=== PATIENT | male | born 1940 | race Asian ===

== ENCOUNTER 2019-08-23 10:49 | Emergency (ER) | payer OTHER, MEDICARE ==
[2019-08-23 10:56] VITALS: BMI 32.9
[2019-08-23] MEDS ORDERED: methylPREDNISolone NA SUCC 125 MG/2 ML VIAL IVPUSH ONE (11:16)
[2019-08-23] MEDS ORDERED: AMPICILLIN NA/SULBACTAM NA 1.5 GM in SODIUM CHLORIDE 100 ML IVPB ONE (11:17)
[2019-08-23] MEDS ORDERED: LACTATED RINGERS SOLUTION 1000 ML INFUS.BAG IV ONE (11:17)
[2019-08-23] MEDS ORDERED: methylPREDNISolone NA SUCC 125 MG/2 ML VIAL ONE (11:20)
[2019-08-23 11:45] LABS: EOS % 0.4 % (0-4.5); HEMATOCRIT 39.9 % (35.4-49); HEMOGLOBIN 13.5 GM/dL (11.7-16.9); LYMPH % 10.4 % (8-40); MCHC 33.7 g/dl (32.0-35.9); MEAN CELL VOLUME 115.9 fl (80-96); MEAN PLT VOLUME 8.8 fl (7.5-11.1); NEUT % 79.2 % (42.8-82.8); PLATELET COUNT 124 K/MM3 (134-434); RBC 3.45 M/mm3 (4.00-5.60); RDW 19.5 % (11.9-15.9); WHITE BLOOD COUNT 9.8 K/mm3 (4.0-10.0)
[2019-08-23] MEDS ORDERED: KETOROLAC TROMETHAMINE 15 MG/ML VIAL IVPUSH ONE (12:01)
--- NOTE | 2019-08-23 12:12 | PDOC ---
Attending Attestation - Resident Resident Name: Geronimo Mahan - ED Attending Attestation I have performed the following: I have examined & evaluated the patient, The case was reviewed & discussed with the resident, I agree w/resident's findings & plan - HPI HPI: 08/23/19 12:02 79-year-old male with history of A. fib on anticoagulation presenting with sore throat x4 days, associate with difficulty swallowing and odynophagia. No fevers , no chest pain no cough no shortness of breath. Has been able to tolerate liquids. He went to see ENT today, Dr. Huitron who dx'd with supraglottitis via rhinoscopy, referred to ED for steroids and abx, observation - Physicial Exam PE: 08/23/19 12:04 NCAT, PERRL, EOMI, clear conjunctiva, anicteric, moist mucus membranes, oropharynx clear. Airway patent, normal phonation. tolerating secretions. Uvula midline. no tonsillar hypertrophy. No sinus tenderness. MMM. irregularly irregular, CTAB. Abdomen soft NT. WWP, no edema. neck supple, no meningeal signs. - Medical Decision Making 08/23/19 12:04 Vital Signs Temp Pulse Resp BP Pulse Ox 78 17 115/77 99 08/23/19 10:54 08/23/19 10:54 08/23/19 10:54 08/23/19 10:54 labs and lytes. wnl normal wbc ct. strep neg maintaining airway. tolerating secretions given IV solumedrol, toradol, IVF, unasyn x1 dose, reassess ENT call back to Dr Huitron who called the patient in and initially discussed prior to transport to ED. will come to eval pt and agreeable to plan as discussed 08/23/19 14:15 On reassessment, patient feels much improved, airway remains patent, tolerating secretions and able to tolerate p.o. intake. He responded well to the Toradol, status post antibiotics and steroids. Will Rx course of Augmentin x1 week and prednisone taper for anti-inflammatory effects. Patient also advised to take NSAIDs as needed for pain control. Return precautions also provided including worsening fevers, pain, inability to tolerate oral intake, dehydration, worsening infection or airway compromise. Patient and family made aware of impression and plan and amenable. 10/24/19 15:04 Discharge - Discharge Information Problems reviewed: Yes Clinical Impression/Diagnosis: Supraglottitis, unspecified, without obstruction Condition: Improved Disposition: HOME - Admission No - Additional Discharge Information Prescriptions: Amox-Tr/K Cl [Augmentin - 875Mg Tablet] 1 tab PO BID #14 tablet predniSONE [Deltasone -] 10 mg PO DAILY 4 Days #6 tablet - Follow up/Referral Referrals: Bakari Huitron MD [Staff Physician] - - Patient Discharge Instructions Patient Printed Discharge Instructions: Sore Throat Additional Instructions: 1) Please follow-up with your primary care doctor in the next 1-2 days. Please call tomorrow for for any urgent issues. You are seen in the emergency department for your supraglottitis, your strep test was negative, follow-up on your throat cultures. 2) You were given a copy of the tests performed today. Please bring the results with you and review them with your primary care doctor. Your laboratory / results were normal, 3) If you have any worsening of symptoms or any other concerns please return to the ED immediately. Return if worsening symptoms including fevers, headache, vomiting, visual or hearing disturbances, abdominal pain, chest pain, shortness of breath, syncope, dehydration, inability to take things by mouth/vomiting, altered mental status, or worsening concerning symptoms. 4) Please continue taking your home medications as directed. your medications on discharge include Augmentin twice a day x1 week and steroid taper. . side effects may include upset stomach, abdominal pain, vomiting, or diarrhea. do not drink alcohol with your medications. Stay well hydrated and rest adequately. Make an appointment. If you cannot follow-up with your primary care doctor please return to the ED - Post Discharge Activity
--- NOTE | 2019-08-23 12:17 | PDOC ---
History of Present Illness - General Chief Complaint: Sore Throat Stated Complaint: SORE THROAT Time Seen by Provider: 08/23/19 11:02 History Source: Patient, Other (Dr. Huitron) Exam Limitations: No Limitations - History of Present Illness Initial Comments: HPI: 79 y/o male presenting to [facility] ER complaining of four days of sore throat. Pt was evaluated in Dr. Huitron's ENT clinic this morning and diagnosed with supraglottitis. Dr. Huitron requested pt receive IV Unasyn and Solumedrol. Would like the pt to be observed for several hours. Dr. Huitron will come evaluate the pt again the department. 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 Denies fevers, chills, difficulty swallowing, or change in voice. 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 Medical Hx: - Afib on AC Review of Systems: In addition to that documented in the HPI above, the additional ROS was obtained : Constitutional- Denies fevers or chills Head- Denies vision changes ENMT- Per HPI CV- Denies chest pain Resp- Denies SOB GI- Denies vomiting or diarrhea - Denies painful urination MSK- Denies recent trauma Skin- Denies new rashes Neuro- Denies new numbness or tingling or weakness Endocrine- Denies polyuria Heme- Denies bleeding or bruising Physical Examination: Constitutional- Nontoxic adult male in no acute distress but mild obvious discomfort. Found semi-fowlers on hospital bed. Answered all questions appropriately and completely. Head- Normocephalic. No obvious external signs of trauma. Throat- Posterior oropharynx mildly erythematous. No exudate. Teeth and gingiva in good general condition. Neck- Supple, trachea is midline. Cardiovascular / Chest- Irregularly irregular rate and rhythm. No murmur, rubs, clicks, or gallops. Peripheral pulses- radial pulses full. Respiratory- Breathing unlabored. Able to speak in complete sentences without pausing. Equal chest rise and fall. Clear to auscultation bilaterally. No stridor, no wheezing, no rhonchi. Neuro- Alert and oriented x4. Moving all four extremities spontaneously. Skin- Warm and dry. Psych- Affect- appropriate. Mood- normal. Speech was non-labored, non- pressured. MDM: *Reviewed vital signs, nursing notes, and prior visit documentation (if available). 79 y/o male presenting with supraglottitis from ENT clinic. Afebrile. Vitals unremarkable for hypotension or tachycardia. Physical exam as described above. Rapid strep test negative. Ordered Unasyn and Solumedrol per ENT request. Ordered labs on pt's request. CBC unremarkable for leukocytosis. CMP revealed mildly elevated T. Bili. Pt reports this is a chronic findings and unchanged from baseline. Dr. Huitron evaluated the pt in department. Requested pt be discharged home with Augmentin and prednisone taper course. ED Attending provided discharge instructions and return precautions. Geronimo Mahan M.D., PGY2 Emergency Medicine Resident Past History - Past Medical History Allergies/Adverse Reactions: Allergies Allergy/AdvReac Type Severity Reaction Status Date / Time No Known Allergies Allergy Verified 03/04/12 12:59 Home Medications: Ambulatory Orders Amox-Tr/K Cl [Augmentin - 875Mg Tablet] 1 tab PO BID #14 tablet 08/23/19 Rivaroxaban [Xarelto -] 15 mg PO DAILY 08/23/19 predniSONE [Deltasone -] 10 mg PO DAILY 4 Days #6 tablet 08/23/19 Cancer: Yes (COLON) Cardiac Disorders: Yes (AFIB) COPD: No - Immunization History Immunization Up to Date: Yes - Psycho Social/Smoking Cessation Hx Smoking Status: No Smoking History: Never smoked Number of Cigarettes Smoked Daily: 0 Hx Alcohol Use: No Drug/Substance Use Hx: No *Physical Exam - Vital Signs Last Vital Signs Temp Pulse Resp BP Pulse Ox 78 17 115/77 99 08/23/19 10:54 08/23/19 10:54 08/23/19 10:54 08/23/19 10:54 ED Treatment Course - LABORATORY CBC & Chemistry Diagram: 08/23/19 11:14 08/23/19 11:14 - ADDITIONAL ORDERS Additional order review: 08/23/19 11:14 RBC 3.45 L MCV 115.9 H MCHC 33.7 RDW 19.5 H MPV 8.8 Neutrophils % 79.2 Lymphocytes % 10.4 Monocytes % 9.0 Eosinophils % 0.4 Basophils % 1.0 Discharge - Discharge Information Problems reviewed: Yes Clinical Impression/Diagnosis: Supraglottitis, unspecified, without obstruction Condition: Improved Disposition: HOME - Additional Discharge Information Prescriptions: Amox-Tr/K Cl [Augmentin - 875Mg Tablet] 1 tab PO BID #14 tablet predniSONE [Deltasone -] 10 mg PO DAILY 4 Days #6 tablet - Follow up/Referral Referrals: Bakari Huitron MD [Staff Physician] - - Patient Discharge Instructions Patient Printed Discharge Instructions: Sore Throat Additional Instructions: 1) Please follow-up with your primary care doctor in the next 1-2 days. Please call tomorrow for for any urgent issues. You are seen in the emergency department for your supraglottitis, your strep test was negative, follow-up on your throat cultures. 2) You were given a copy of the tests performed today. Please bring the results with you and review them with your primary care doctor. Your laboratory / results were normal, 3) If you have any worsening of symptoms or any other concerns please return to the ED immediately. Return if worsening symptoms including fevers, headache, vomiting, visual or hearing disturbances, abdominal pain, chest pain, shortness of breath, syncope, dehydration, inability to take things by mouth/vomiting, altered mental status, or worsening concerning symptoms. 4) Please continue taking your home medications as directed. your medications on discharge include Augmentin twice a day x1 week and steroid taper. . side effects may include upset stomach, abdominal pain, vomiting, or diarrhea. do not drink alcohol with your medications. Stay well hydrated and rest adequately. Make an appointment. If you cannot follow-up with your primary care doctor please return to the ED - Post Discharge Activity
[2019-08-23 12:21] LABS: ALBUMIN 4.3 g/dl (3.4-5.0); BILIRUBIN,TOTAL 2.8 mg/dL (0.2-1); BLOOD UREA NITROGEN 11.4 mg/dL (7-18); CALCIUM 8.8 mg/dL (8.5-10.1); CREATININE 0.9 mg/dL (0.55-1.3); POTASSIUM 3.8 mmol/L (3.5-5.1)
[2019-08-23] MEDS ORDERED: KETOROLAC TROMETHAMINE 15 MG/ML VIAL ONE (12:24)
[2019-08-23 12:53] LABS: ANISOCYTOSIS 1+; MACROCYTOSIS 2+; OVALOCYTE 1+; PLATELET ESTIMATE DECREASED; TEAR DROP CELLS 1+
[2019-08-23] MEDS ORDERED: predniSONE 20 MG TABLET (UD) PO ONE (14:58)
--- NOTE | 2019-08-23 15:03 | CON.ENT ---
Consult Consult Specialty:: ENT Reason for Consultation:: supraglottitis - History of Present Illness Chief Complaint: 4 day sore throat, 1 day worsening with voice change History of Present Illness: I saw him in the office early this am, and he had mild epiglottic edema, but also moderate right aryepiiglottitic fold edema and mild left AE fold swelling too. His cords were mobile and clear. He had blunting of right piriform sinus and retained secretions - History Source History Provided By: Patient, Medical Record Limitations to Obtaining History: No Limitations - Alcohol/Substance Use Hx Alcohol Use: No - Smoking History Smoking history: Never smoked Aproximately how many cigarettes per day: 0 Home Medications - Allergies Allergies/Adverse Reactions: Allergies Allergy/AdvReac Type Severity Reaction Status Date / Time No Known Allergies Allergy Verified 03/04/12 12:59 - Home Medications Home Medications: Ambulatory Orders Rivaroxaban [Xarelto -] 15 mg PO DAILY 08/23/19 Physical Exam-ENT Vital Signs: Vital Signs Temperature Pulse Rate 95 H 08/23/19 12:56 Respiratory Rate 17 08/23/19 12:56 Blood Pressure 132/90 08/23/19 12:56 O2 Sat by Pulse Oximetry (%) 99 08/23/19 12:56 Constitutional: Yes: Well Nourished, No Distress Head: Yes: WNL, Atraumatic, Normocephalic Face: Yes: WNL, Symmetrical Eyes: Yes: WNL, Conjunctiva Clear Nose: Yes: WNL Nasal Passage: Yes: WNL Oral/Pharynx: Yes: WNL Outer Ear: Yes: WNL Ear Canal: Yes: WNL Tympanic Membrane: Yes: WNL Neck: Yes: WNL Problem List - Problems (1) Supraglottitis Assessment/Plan: Discharge home on augmentin and steroid taper. He can see me in the office tomorrow and we had a long discussion regarding what he should do. 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 MUCH improved, CLEAR AIRWAY, mobile vocal cords
[2019-08-23] MEDS ORDERED: predniSONE 20 MG TABLET (UD) ONE (15:04)
[2019-08-23 15:12] VITALS: BP 149/87; PULSE 93
== END 2019-08-23 15:33 | disposition home or self-care (01) ==
LOC: JER 10:49
PROC: 0CJS8ZZ Inspection of Larynx, Via Natural or Artificial Opening Endoscopic (ICD-10-PCS; principal; 2019-08-23)
PROC: 3E03329 Introduction of Other Anti-infective into Peripheral Vein, Percutaneous Approach (ICD-10-PCS; 2019-08-23)
PROC: 3E0333Z Introduction of Anti-inflammatory into Peripheral Vein, Percutaneous Approach (ICD-10-PCS; 2019-08-23)
PROC: 3E0333Z Introduction of Anti-inflammatory into Peripheral Vein, Percutaneous Approach (ICD-10-PCS; 2019-08-23)
DX: J04.30 Supraglottitis, unspecified, without obstruction (principal); I48.91 Unspecified atrial fibrillation; Z79.01 Long term (current) use of anticoagulants
CPT/HCPCS: 36415; 80053; 85025; 87070; 87880; 99284-25